=== PATIENT | female | born 1950 | race Caucasian/White ===

== ENCOUNTER 2025-06-30 14:57 | Inpatient (IN) | payer MEDICARE, OTHER, SELFPAY ==
[2025-06-30] VITALS (52 sets, daily range): BP systolic 129–206; BP diastolic 68–111; PULSE 61–82; RESP 17–18; TEMP 36.7; O2SAT 92–100; BMI 24.0; BMI 24.7
--- OUTSIDE RECORDS SUMMARY | 2025-06-30 15:07 | XMS_ITS | Encounter Summary ---
Author Organization [facility] and Its Subsidiaries and Affiliates Address [address] [address] [place] [address] Care Team Providers Care Body And Fender Mechanic Name Role Phone Nicole Blackman MD Primary Care Provider [phone] Encounter Details Date Type Department Care Team (Latest Contact Info) Description 12/12/2024 Transcribe Orders [facility] [address] [place] [address] [place] [address] [place], [place] [address] [address] [place], [place] [address] Encounter for routine cancer follow-up (Primary Dx); Personal history of breast cancer Social History Tobacco Use Types Packs/Day Years Used Date Smoking Tobacco: Never Smokeless Tobacco: Never Alcohol Use Standard Drinks/Week Comments Never 0 (1 standard drink = 0.6 oz pur e alcohol) B1300 Health Literacy Answer Date Recor ded How often do you need to hav e someone help you when you read instructions, pamphlets, or other written material from your doctor or pharmacy? Never 08/22/2024 [facility] Utilities Answer Date Recorded In the past 12 months has e electric, gas, oil, or water company threatened to shut off services in your home? No 08/22/2024 Humiliation, Afraid, Rape, and Kick questionnair e Answer Date Recorded Within the last year, have y ou been afraid of your partner or ex-partner? No 08/22/2024 Within the last year, have y ou been humiliated or emotionally abused in other ways by your partner or ex-partner? No Within the last year, have y ou been kicked, hit, slapped, or otherwise physically hurt by your partner or ex-partner? No 08/22/2024 Within the last year, have y ou been raped or forced to have any kind of sexual activity by your partner or ex-partner? No 08/22/2024 Social Connection and Isolat ion Panel [NHANES] Answer Date Recorded In a typical week, how many times do you talk on the phone with family, friends, or neighbors? More than three times a week 08/22/2024 How often do you get togethe r with friends or relatives? Twice a week 08/22/2024 How often do you attend [facility] or latter-day services? More than 4 times per year 08/22/2024 Do you belong to any clubs o r organizations such as restorationist groups, unions, fraternal or athletic groups, or school groups? Yes 08/22/2024 How often do you attend meet ings of the clubs or organizations you belong to? More than 4 times per year 08/22/2024 Are you , , di vorced, , never , or living with a partner? 08/22/2024 AUDIT-C Answer Date Recorded Q1: How often do you have a drink containing alc ohol? Monthly or less 08/22/2024 Q2: How many drinks containi ng alcohol do you have on a typical day when you are drinking? 1 or 2 08/22/2024 Q3: How often do you have si x or more drinks on one occasion? Never 08/22/2024 Overall Financial Resource Strain (CARDIA) Answe r Date Recorded How hard is it for you to pa y for the very basics like food, housing, medical care, and heating? Not hard at all 08/22/2024 PHQ-2 Answer Date Recorded PHQ-2 Score 0 09/18/2024 [facility] of Occupat ional Health - Occupational Stress Questionnaire Answer Date Recorded Do you feel stress - tense, restless, nervous, or anxious, or unable to sleep at night because your mind is troubled all the time - these days? Not at all 08/22/2024 Exercise Vital Sign Answer Date Recorde d On average, how many days pe r week do you engage in moderate to strenuous exercise (like a brisk walk)? 3 days 08/22/2024 On average, how many minutes do you engage in exercise at this level? 30 min 08/22/2024 Hunger Vital Sign Answer Date Recorded Within the past 12 months, y ou worried that your food would run out before you got the money to buy more. Never true 08/22/20 24 Within the past 12 months, t he food you bought just didn't last and you didn't have money to get more. Never true 08/22/2024 PRAPARE - Transportation Answer Date Re corded In the past 12 months, has l ack of transportation kept you from medical appointments or from getting medications? No 08/02 In the past 12 months, has l ack of transportation kept you from meetings, work, or from getting things needed for daily living? No 08/22/2024 Housing Stability Vital Sign Answer Oscar e Recorded In the last 12 months, was t here a time when you were not able to pay the mortgage or rent on time? No 08/22/2024 In the past 12 months, how m any times have you moved where you were living? 0 08/22/2024 At any time in the past 12 m [facility], were you homeless or living in a care home (including now)? No 08/22/2024 Comments Unknown Sex and Gender Information Value Date Recorded Sex Assigned at Not on file Legal Sex Female 1:06 PM TEXTILE WORKER Gender Identity Not on file Sexual Orientation Not on file documented as of this encounter Plan of Treatment Upcoming Encounters Date Type Department Care Team (Late st Contact Info) Description 10/03/2025 12:30 PM TEXTILE WORKER Infusion [facility] - OUTPATIENT INF[facility]ION [address] [place] [address] 01/02/2026 10:30 AM TEXTILE WORKER Office Visit [facility] [address] [place] [phone] Kendall Rg MD [address] [facility] [place] [address] documented as of this encounter Results * (ABNORMAL) Comprehensive metabolic panel (01/01/2025 9:39 AM [facility]) Creatinine Level 0.80 0.50 - 0.90 mg/dL 01/01/2025 11:25 AM [facility] Blood Urea Nitrogen Level 14 8 - 23 mg/dL 01/01/2025 11:25 AM [facility] Sodium Level 143 136 - 145 mmol/L 01/01/2025 11:25 AM [facility] Potassium Level 4.2 3.5 - 5.1 mmol/L 01/01/2025 11:25 AM [facility] Chloride Level 105 98 - 107 mmol/L 01/01/2025 11:25 AM [facility] CO2 Level 28 22 - 29 mmol/L 01/01/2025 11:25 AM [facility] Glucose Level 80 74 - 109 mg/dL 01/01/2025 11:25 AM [facility] Calcium Level 9.6 8.8 - 10.2 mg/dL 01/01/2025 11:25 AM [facility] Protein Total 6.9 6.4 - 8.3 g/dL 01/01/2025 11:25 AM [facility] Albumin Level 4.1 3.5 - 5.2 g/dl 01/01/2025 11:25 AM [facility] Bilirubin Total 0.4 <=1.2 mg/dL 01/01/2025 11:25 AM [facility] Alkaline Phosphatase Level 59 35 - 104 U/L 01/01/2025 11:25 AM [facility] SGOT (AST) 27 <=35 U/L 01/01/2025 11:25 AM [facility] SGPT (ALT) 21 <35 U/L 01/01/2025 11:25 AM [facility] Anion Gap 10 2 - 15 mmol/L 01/01/2025 11:25 AM [facility] EGFR 77(L) >=90 mL/min/1.7 3mSq 01/01/2025 11:25 AM [facility] Comment: In accordance with NKF-ASN Task Force recommendation, calculation based on the Chronic Kidney Disease Epidemiology Collaboration (CKD-EPI) equation without adjustment for race. eGFR adjusted for gender and age and calculated in ml/min/1.73mSquared. eGFR cannot be calculated if patient is under 18 years of age. Reference Range: >= 60 ml/min/1.73mSquared. Blood VENOUS STRUCTURE / Unknown Venipuncture / Unknown 01/01/2025 9:39 AM TEXTILE WORKER 01/01/2025 9:39 AM TEXTILE WORKER us Kendall Rg MD LAB BLOOD ORDERABLES Final R esult [facility] [address] [place] [address], [facility] [phone] documented in this encounter Visit Diagnoses Diagnosis Encounter for routine cancer follow-up- Primary Personal history of breast cancer Personal history of malignant neoplasm of breast documented in this encounter Care Teams Body And Fender Mechanic Relationship Specialty Start Date End Date Hiral, MD Nicole [address] [place] [address] PCP - General Family Medicine 07/18/24 documented as of this encounter
--- OUTSIDE RECORDS SUMMARY | 2025-06-30 15:07 | XMS_ITS | Clinical Summary ---
Author Organization [facility] Address [address] [place] [address] Care Team Providers Care Prepress Operator Name Role Phone Unavailable Primary Care Provider Unavailabl e Social History Tobacco Use Types Packs/Day Years Used Date Smoking Tobacco: Never Assessed Comments Unknown Sex and Gender Information Value Date Recorded Sex Assigned at Not on file Legal Sex Female 6:37 PM SENIOR WEB SERVICES DEVELOPER Gender Identity Not on file Sexual Orientation Not on file Plan of Treatment Not on file Procedures Procedure Name Priority Date/Time Associated Diagnosis Comments MT MAMMO DX UNI W CAD&LUCHO RIGHT Routine 12/19/2020 1:09 PM SENIOR WEB SERVICES DEVELOPER Personal history of malignant neoplasm of breast from Last 3 Months or Most Recently Relevant to Health Maintenance Results * Mammo Dx Uni W Cad&Lucho Right (12/19/2020 1:09 PM SENIOR WEB SERVICES DEVELOPER) Anatomical Region Laterality Modality Breast Right Mammography 12/19/2020 12:5 2 PM SENIOR WEB SERVICES DEVELOPER Narrative 12/19/2020 1:51 PM SENIOR WEB SERVICES DEVELOPER ALIYAH DX UNI W CAD&LUCHO Right, BREAST UNILAT LIMITED CLINICAL HISTORY: Screening. TECHNIQUE: Views: Craniocaudal, mediolateral oblique, and lateral medial mammogram of the right breast with lucho synthesis. CAD: Performed on the non-tomographic images. COMPARISON: Mammogram dated 09/27/2018 with ultrasound dated 11/04/2018. FINDINGS: Postoperative changes are noted in the right breast since the prior study with surgical clips in the central breast and axillary region. New asymmetry is noted in the lower inner right breast with inter mixed areas of calcification. Sonographic evaluation in the right breast at the 5 o'clock position zone 3 demonstrate a heterogenou s, poorly circumscribed area of low echogenicity with posterior shadowing and angulated margins. The area is taller than wide with questionable central internal echogenic foci. At the 3 o'clock position zone 3, ultrasound in straight more circumscribed areas of low attenuation which appear to have fatty foreign and are favored represent intramammary lymph nodes. IMPRESSION: BI-RADS: category 4B, concerning for malignancy. RECOMMENDATION: Ultrasound-guided biopsy. This facility uses a reminder system to ensure that all patients receive a reminder letters and/or di rect phone calls for appointments. This includes reminders for routine screening mammograms, diagnost ic mammograms, and other breast interventions when appropriate. The patient will be placed in the [employer] reminder system. Procedure Note Gonzales Rebolledo MD - 11/19/2024 ALIYAH DX UNI W CAD&LUCHO Right, BREAST UNILAT LIMITED CLINICAL HISTORY: Screening. TECHNIQUE: Views: Craniocaudal, mediolateral oblique, and lateral medial mammogram ofthe right breast with lucho synthesis. CAD: Performed on the non-tomographic images. COMPARISON: Mammogram dated 09/27/2018 with ultrasound dated 11/04/2018. FINDINGS: Postoperative changes are noted in the right breast since the prior studywith surgical clips in the central breast and axillary region. New asymmetry is noted in the lowerinner right breast with inter mixed areas of calcification. Sonographic evaluation in the right breast at the 5 o'clock position zone3 demonstrate a heterogenou s, poorly circumscribed area of low echogenicity with posterior shadowingand angulated margins. The area is taller than wide with questionable central internal echogenicfoci. At the 3 o'clock position zone 3, ultrasound in straight morecircumscribed areas of low attenuation which appear to have fatty foreign and are favored represent intramammarylymph nodes. IMPRESSION: BI-RADS: category 4B, concerning for malignancy. RECOMMENDATION: Ultrasound-guided biopsy. This facility uses a reminder system to ensure that all patients receive areminder letters and/or di rect phone calls for appointments. This includes reminders for routinescreening mammograms, diagnost ic mammograms, and other breast interventions when appropriate. Thepatient will be placed in the [employer] reminder system. us Historical Provider IMG MAMMOGRAPHY ORDERABLES F inal Result from Last 3 Months or Most Recently Relevant to Health Maintenance
--- OUTSIDE RECORDS SUMMARY | 2025-06-30 15:07 | XMS_ITS | Encounter Summary ---
Author Organization [facility] and Its Subsidiaries and Affiliates Address [address] [address] [place] [address] Care Team Providers Care Insurance Case Manager Name Role Phone Nicole Blackman MD Primary Care Provider [phone] Encounter Details Date Type Department Care Team (Late st Contact Info) Description 12/28/2024 Procedure Pass [facility] Internal Medicine - [address], [address] [place] [phone] Social History Tobacco Use Types Packs/Day Years [...] from your doctor or pharmacy? Never 08/22/2024 [facility] Utilities Answer Date Recorded In the past 12 months has [facility] [employer], [employer], oil, or water [employer] threatened to shut off services in your [...] week 08/22/2024 How often do you attend chur or rastafari services? More than 4 times per year 08/22/2024 Do you belong to any clubs o r organizations such as gnosticism groups, unions, fraternal or athletic groups, or [...] Answer Date Recorded PHQ-2 Score 0 09/18/2024 [employer] of Occupat ional Health - Occupational Stress [...] any time in the past 12 m [facility], were you homeless or living in a jail (including now)? No 08/22/2024 Comments Unknown Sex and Gender Information Value Date Recorded Sex Assigned at Not on file Legal Sex Female 1:06 PM TEST CONSULTANT Gender Identity Not on file Sexual Orientation Not on file documented as of this encounter Plan of Treatment Upcoming Encounters Date Type Department Care Team (Late st Contact Info) Description 10/03/2025 12:30 PM TEST CONSULTANT Infusion [facility] - OUTPATIENT INFUSION [address] [place] [address] 01/02/2026 10:30 AM TEST CONSULTANT Office Visit [facility] [address] [place] [address] Kendall Rg MD [address] [facility] [address] [place], [place] [address] documented as of this encounter Visit Diagnoses Not on filedocumented in this encounter Care Teams Insurance Case Manager Relationship Specialty Start Date End Date Nicole Blackman MD [address] [place] [address] PCP - General Family Medicine 9/17/24 documented as of this encounter
--- OUTSIDE RECORDS SUMMARY | 2025-06-30 15:07 | XMS_ITS | Encounter Summary ---
Author Organization [facility] and Its Subsidiaries and Affiliates Address [address] [address] [place] [address] Care Team Providers Care Form Carpenter Name Role Phone Nicole Blackman MD Primary Care Provider [phone] Encounter Details Date Type Department Care Team (Late Contact Info) Description 07/15/2024 Procedure Pass [facility] Breast Imaging [address] [place] [address] Social History Tobacco Use Types Packs/Day Years Used Date Smoking Tobacco: Never Smokeless Tobacco: Never Alcohol Use Standard Drinks/Week Comments Never 0 (1 standard drink = 0.6 oz pur e alcohol) Comments Unknown Sex and Gender Information Value Date Recorded Sex Assigned at Not on file Legal Sex Female 1:06 PM INSURANCE CHECKER Gender Identity Not on file Sexual Orientation Not on file documented as of this encounter Plan of Treatment Upcoming Encounters Date Type Department Care Team ([facility] Contact Info) Description 10/03/2025 12:30 PM INSURANCE CHECKER Infusion [facility] - OUTPATIENT [facility] [address] [place] [address] 01/02/2026 10:30 AM INSURANCE CHECKER Office Visit [facility] [address] [place] [phone] Kendall Rg MD [address] [facility] [address] [place] [address] documented as of this encounter Visit Diagnoses Not on filedocumented in this encounter Care Teams Form Carpenter Relationship Specialty Start Date End Date Nicole Blackman MD [address] [place] [address] PCP - General Family Medicine 07/18/24 documented as of this encounter
--- OUTSIDE RECORDS SUMMARY | 2025-06-30 15:07 | XMS_ITS | Clinical Summary ---
Author Organization [facility], later [facility] and Its Subsidiaries and Affiliates Address [address] [address] [place] [address] Care Team Providers Care Trim Technician Name Role Phone Nicole Blackman MD Primary Care Provider [phone] Allergies Active Allergy Reactions Criticality Noted Date Comments Penicillins Rash Low 08/14/2024 Medications * Be aware that medications may not be up to date as of this document.Always verify current medications with patient. calcium carbonate-vitam in D3 (Caltrate with Vitamin D3) 600 mg-20 mcg (800 unit) Tablet Take 90 tablets by mouth once daily. Active loperamide (IMODIUM A-D) 2 mg tablet Take 1 tablet by mouth every 8 (eight) hours. Active lactobacillus rhamnosus, GG, (CULTURELLE) 10 billion cell capsule Take 1 capsule by mouth once daily. Active calcium citrate (CALCITRATE,CIT RICAL) 200 mg (950 mg) tablet Take 1 tablet by mouth in the morning. 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 Due for Prolia infusion. Will order routine labs that are due for the infusion. Assessment & Plan (03/21/2025 11:15 AM CDT): Assessment & Plan (08/23/2024 11:03 AM CDT): Continue Prolia - Infusion order sent. Vit D and CMP checked and normal. Assessment & Plan (08/16/2024 9:50 AM CDT): Cmp, mg, vit D with Prolia planned for next month. Dexa in 13 days for monitoring. Ductal carcinoma in situ (DCIS) of right breast Assessment & Plan (08/16/2024 9:57 AM CDT): No hrt recommended. Closed left subtrochanteric femur fracture Popliteal DVT (deep venous thrombosis) Overview (01/04/2025): Left, and B subsegmental PEs with L pleural effusion s/p hip ORIF 2022 on eliquis x 6 month per pulm Stress fracture of right toe Overview (01/04/2025): R 2nd toe, osteoporosis Encounters Date Type Department Care Team Description 04/03/2025 2:30 PM CDT Infusion [facility] [address] [place] [address] Personal history of malignant neoplasm of breast (Primary Dx) 04/03/2025 History [facility] [address] [place] [address] 04/03/2025 Travel from Last 3 Months Immunizations Immunization Administration Dates Next Due Fluzone High-Dose (PF) Influ jesse Virus Vaccine 07/14/2024,10/01/2016 Influenza High-Dose (PF) Quad 0.7 mL 07/19/2024, 07/28/2023,07/22/2022 Influenza Split Quad 6-35 MO OR > or = to 3 YO 08/06/2015 Pneumococcal Conjugate PCV13 10/01/2016 Pneumococcal Polysaccharide PPSV23 10/27/2017 SARS-COV-2 Pfizer > OR = 12Y O (COVID-19) Vaccine Preservative Free 0.3 ML IM 07/14/2024,07/28/2023 SARS-COV-2 Pfizer Purple Cap (COVID-19) Vaccine Preservative Free 0.3 mL IM 07/30/2021,12/20/2020,11/29/2020 Shingrix Zoster Vaccine 03/02/2022,01/01/2022 Td (adult) PF, adsorbed 02/14/2024 Tdap 05/15/2015 Zoster 09/27/2013 Family History Medical History Relation Comments COPD Father Cancer Maternal Aunt Breast cancer Maternal Grandmother Brain aneurysm Mother Alcohol Abuse Sister Coronary artery disease Sister Relation Status Comments Father Maternal Aunt Maternal Grandmother Mother Sister Social History Tobacco Use Types Packs/Day Years Used Date Smoking Tobacco: Never Smokeless Tobacco: Never Tobacco Cessation:Counseling Given: Not Answered Alcohol Use Standard Drinks/Week Comments Never 0 (1 standard drink = 0.6 oz pur e alcohol) B1300 Health Literacy Answer Date Recor ded How often do you need to hav e someone help you when you read instructions, pamphlets, or other written material from your doctor or pharmacy? Never 08/22/2024 C Utilities Answer Date Recorded In the past 12 months has e [employer], gas, oil, or water company threatened to [...] week 08/22/2024 How often do you attend [facility] or pentecostal services? More than 4 times per year 08/22/2024 Do you belong to any clubs o r organizations such as worship groups, unions, fraternal or athletic groups, or [...] PHQ-2 Answer Date Recorded PHQ-2 Score 0 04/03/2025 [facility] - Occupational Stress [...] any time in the past 12 m [facility], were you homeless or living in a long-term (including now)? 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 Gender Identity Not on file Sexual Orientation Not on file Last Filed Vital Signs Vital Sign Reading Time Taken Comments Blood Pressure 122/70 03/21/2025 10:40 AM CDT Pulse 69 04/03/2025 2:27 PM CDT Temperature 36.6 C (97.8 F) 03/21/2025 10:40 AM CDT Respiratory Rate 18 04/03/2025 2:27 PM CDT Oxygen Saturation 94% 04/03/2025 2:27 PM CDT Inhaled Oxygen Concentration - - Weight 80.7 kg (178 lb) 04/03/2025 2:26 PM CDT Height 177.8 cm (5' 10 ) 04/03/2025 2:26 PM CDT Body Mass Index 25.54 04/03/2025 2:26 PM CDT Plan of Treatment Upcoming Encounters Date Type Department Care Team (Late st Contact Info) Description 10/03/2025 12:30 PM MACHINE ICER Infusion [facility] [address] [place] [address] 01/02/2026 10:30 AM MACHINE ICER Office Visit [facility] [address] [place] [id number] Kendall Rg MD [address] [place] [address] Health Maintenance Due Date Last Done Comments CT Colonography 1950 FIT 1950 FOBT 1950 Flexible Sigmoidoscopy 1950 Cologuard 11/13/2022 11/13/2019 DTaP/Tdap/Td Vaccines (3 - Td or Tdap) 08/15/2024 02/14/2024, 05/15/2015 COVID-19 Vaccine ( season) 2025 07/14/2024, 07/28/2023, 07/30/2021, Additional history exists INFLUENZA VACCINE 07/02/2025 07/19/2024, , 07/28/2023, Additional history exists Annual Visit for Age 65 & older with PCP 08/23/2025 08/23/2024, 12/30/2022 DEXA SCAN 08/28/2026 08/28/2024 Colonoscopy 10/11/2030 10/11/2023 Colorectal Cancer Screening 10/11/2030 Pneumococcal Vaccine: 50+ Years Completed 10/27/2017, 10/01/2016 ZOSTER VACCINE Completed 03/02/2022, 03/0 12/2021, 09/27/2013 Hepatitis C Screening Completed 08/23/2024 RSV Vaccines Completed 09/16/2024 Hepatitis B Vaccines Aged Out No long er eligible based on patient's age to complete this topic MAMMOGRAM Discontinued RSV UNDER 20 MONTHS Aged Out No longe r eligible based on patient's age to complete this topic Procedures Procedure Name Priority Date/Time Associated Diagnosis Comments XR DEXA CENTRAL Routine 08/28/2024 9:20 AM CDT Encounter for screening for osteoporosis HEPATITIS C ANTIBODY Routine 08/23/2024 11:45 AM CDT Encounter for hepatitis C screening test for low risk patient from Last 3 Months or Most Recently Relevant to Health Maintenance Results * XR Dexa Central (08/28/2024 9:20 AM CDT) Anatomical Region Laterality Modality Other 08/28/2024 10:0 5 AM CDT Impressions 08/28/2024 11:55 AM CDT Osteopenia based on BMD. Fracture risk is unknown due to history of bone building therapy. World Health Organization criteria for BMD impression classify patients as: - Normal (T-score at or above -1.0). - Osteopenia (T-score between -1.0 and -2.5). - Osteoporosis (T-score at or below -2.5). Per the Bone Health and Osteoporosis Foundation the FRAX tool is most useful in patients with low femoral neck bone mineral density (osteopenia). FRAX is calculated per request. RECOMMENDATIONS: 1. All patients should optimize their calcium and vitamin D intake. 2. Consider FDA-approved medical therapies in postmenopausal women and men aged 50 years and older, based on the following: - A hip or vertebral (clinical or morphometric) fracture. - T-score less than or equal to -2.5 at the femoral neck or spine after appropriate evaluation to exclude secondary causes. - Low bone density (T-score between -1.0 and -2.5 at the femoral neck or spine) and a 10-year probability of a hip fracture greater than or equal to 3% or a 10-year probability of a major osteoporosis-related fracture greater than or equal to 20% based on FRAX calculation. - Clinician judgment and/or patient preferences may indicate treatment for people with 10-year fracture probabilities above or below these levels. - Further guidance on treatment can be found at the National Osteoporosis Foundation's website bonesource.org. 3. Patients with diagnosis of osteoporosis or at high risk for fracture should have regular bone mineral density tests. For patients eligible for Medicare, routine testing is allowed once every 2 years. The testing frequency can be increased to one year for patients who have rapidly progressing disease, those who are receiving or discontinuing medical therapy to restore bone mass or have additional risk factors. Electronically signed by: Clayton Gardner DO 08/28/2024 11:55 AM CDT [facility] 08/28/2024 11:55 AM CDT EXAMINATION: DUAL X-RAY ABSORPTIOMETRY (DXA) FOR BONE MINERAL DENSITY. CLINICAL INDICATION: 73 years old, Female. Postmenopausal. Z13.820. History of fragility fracture. History of hip fracture. Patient has been on recent bone building therapy. TECHNIQUE: An axial (e.g., hips, spine) and/or appendicular (e.g., radius) exam was performed, as appropriate, using HoloTreventis Horizon W densitometer at [facility]. Images are obtained for bone mineral density measurement and are not obtained for diagnostic purposes. [id number] EXCLUSIONS: Left hip due to replacement. COMPARISON: 01/22/2022. FINDINGS: Scan quality: Good. LUMBAR SPINE (L1-L4): BMD (in g/cm*2): 1.014. T-score: -0.3. Z-score: 2.0. Rate of change from previous exam: -4.9%. RIGHT FEMORAL NECK: BMD (in g/cm*2): 0.647. T-score: -1.8. Z-score: 0.2. RIGHT TOTAL HIP: BMD (in g/cm*2): 0.791. T-score: -1.2. Z-score: 0.5. Rate of change from previous exam: +2.9%. FRAX 10-YEAR PROBABILITY OF FRACTURE: FRAX not reported as the patient is receiving bone building therapy. Procedure Note Clayton Gardner, - 08/28/2024 EXAMINATION: DUAL X-RAY ABSORPTIOMETRY (DXA) FOR BONE MINERAL DENSITY. CLINICAL INDICATION: 73 years old, Female. Postmenopausal. Z13.820. History of fragility fracture. History of hip fracture. Patient has beenon recent bone building therapy. TECHNIQUE: An axial (e.g., hips, spine) and/or appendicular (e.g., radius)exam was performed, as appropriate, [facility]. Images are obtained for bone mineraldensity measurement and are not obtained for diagnostic purposes.[id number] EXCLUSIONS: Left hip due to replacement. COMPARISON: 01/22/2022. FINDINGS: Scan quality: Good. LUMBAR SPINE (L1-L4): BMD (in g/cm*2): 1.014. T-score: -0.3. Z-score: 2.0. Rate of change from previous exam: -4.9%. RIGHT FEMORAL NECK: BMD (in g/cm*2): 0.647. T-score: -1.8. Z-score: 0.2. RIGHT TOTAL HIP: BMD (in g/cm*2): 0.791. T-score: -1.2. Z-score: 0.5. Rate of change from previous exam: +2.9%. FRAX 10-YEAR PROBABILITY OF FRACTURE: FRAX not reported as the patient is receiving bone building therapy. IMPRESSION: Osteopenia based on BMD. Fracture risk is unknown due to history of bone building therapy. World Health Organization criteria for BMD impression classify patientsas: - Normal (T-score at or above -1.0). - Osteopenia (T-score between -1.0 and -2.5). - Osteoporosis (T-score at or below -2.5). Per the Bone Health and Osteoporosis Foundation the FRAX tool is mostuseful in patients with low femoral neck bone mineral density(osteopenia). FRAX is calculated per request. RECOMMENDATIONS: 1. All patients should optimize their calcium and vitamin D intake. 2. Consider FDA-approved medical therapies in postmenopausal women andmen aged 50 years and older, based on the following: - A hip or vertebral (clinical or morphometric) fracture. - T-score less than or equal to -2.5 at the femoral neck or spine afterappropriate evaluation to exclude secondary causes. - Low bone density (T-score between -1.0 and -2.5 at the femoral neck orspine) and a 10-year probability of a hip fracture greater than or equalto 3% or a 10-year probability of a major osteoporosis-related fracturegreater than or equal to 20% based on FRAX calculation. - Clinician judgment and/or patient preferences may indicate treatmentfor people with 10-year fracture probabilities above or below theselevels. - Further guidance on treatment can be found at the National OsteoporosisFoundation's website bonesource.org. 3. Patients with diagnosis of osteoporosis or at high risk for fractureshould have regular bone mineral density tests. For patients eligible forMedicare, routine testing is allowed once every 2 years. The testingfrequency can be increased to one year for patients who have rapidlyprogressing disease, those who are receiving or discontinuing medicaltherapy to restore bone mass or have additional risk factors. Electronically signed by: Clayton Gardner DO 08/28/2024 11:55 AM CDT RPWorkstation: [id number] German Cuello MD IMG DEXA ORDERABLES Final Result * Hepatitis C antibody (08/23/2024 11:45 AM CDT) Hepatitis C Virus Antibody Screen Non-reacti ve NON-REACTI VE 08/23/2024 5:33 PM CDT [facility] Blood VENOUS STRUCTURE / Unknown Venipuncture / Unknown 08/23/2024 11:45 AM CDT 08/23/2024 4:54 PM CDT us Nicole Blackman MD LAB BLOOD ORDERABLES Final Resul t [facility] [address] [place] [id number] [place] [address] from Last 3 Months or Most Recently Relevant to Health Maintenance Insurance [place] [id number] GENERIC MEDICARE SUPPLEMENT Care Teams Trim Technician Relationship Specialty Start Date End Date Nicole Blackman MD [facility] [place] [address] PCP - General Family Medicine 07/18/24
--- NOTE | 2025-06-30 15:10 | CTR_ITS ---
PROCEDURE INFORMATION: Exam: CTA Head With Contrast, Arteriography Exam date and time: 06/30/2025 3:17 PM Age: 74 years old Clinical indication: Stroke-like symptoms; Left lower extremity numbness/paresthesia; Additional info: Nih 3. L sided numbness with lue and lle drift, nih 3 TECHNIQUE: Imaging protocol: Computed tomographic angiography of the head with contrast. Exam focused on the arteries. 3D rendering (Not supervised by radiologist): MIP and/or 3D reconstructed images were created by the technologist. Radiation optimization: All CT scans at this facility use at least one of these dose optimization techniques: automated exposure control; mA and/or kV adjustment per patient size (includes targeted exams where dose is matched to clinical indication); or iterative reconstruction. Contrast material: OMNI 350; Contrast volume: 100 ml; Contrast route: INTRAVENOUS (IV); COMPARISON: CT head thrombolytic [id number] 06/30/2025 3:11 PM RADIATION DOSE METRICS: Total DLP (mGy-cm): 441.47 FINDINGS: ANTERIOR CIRCULATION: Right internal carotid artery: Intracranial segment is patent with no significant stenosis. No aneurysm. Right middle cerebral artery: No occlusion or significant stenosis. No aneurysm. Right anterior cerebral artery: No occlusion or significant stenosis. No aneurysm. Left internal carotid artery: Intracranial segment is patent with no significant stenosis. No aneurysm. Left middle cerebral artery: No occlusion or significant stenosis. No aneurysm. Left anterior cerebral artery: No occlusion or significant stenosis. No aneurysm. POSTERIOR CIRCULATION: Right vertebral artery: No occlusion or significant stenosis. No aneurysm. Left vertebral artery: No occlusion or significant stenosis. No aneurysm. Basilar artery: No occlusion or significant stenosis. No aneurysm. Right posterior cerebral artery: No occlusion or significant stenosis. No aneurysm. Left posterior cerebral artery: No occlusion or significant stenosis. No aneurysm. Brain: Please see the CT brain report. Cerebral ventricles: No ventriculomegaly. Bones/joints: Unremarkable. No acute fracture. Soft tissues: Unremarkable. PROCEDURE INFORMATION: Exam: CTA Neck With Contrast Exam date and time: 06/30/2025 3:17 PM Age: 74 years old Clinical indication: Stroke-like symptoms; Left lower extremity numbness/paresthesia; Additional info: Nih 3. L sided numbness with lue and lle drift, nih 3 TECHNIQUE: Imaging protocol: Computed tomographic angiography of the neck with contrast. Exam focused on the cervical segments of the vasculature. 3D rendering (Not supervised by radiologist): MIP and/or 3D reconstructed images were created by the technologist. Radiation optimization: All CT scans at this facility use at least one of these dose optimization techniques: automated exposure control; mA and/or kV adjustment per patient size (includes targeted exams where dose is matched to clinical indication); or iterative reconstruction. Contrast material: OMNI 350; Contrast volume: 100 ml; Contrast route: INTRAVENOUS (IV); COMPARISON: CT head thrombolytic [id number] 06/30/2025 3:11 PM RADIATION DOSE METRICS: Total DLP (mGy-cm): 441.47 FINDINGS: Right common carotid artery: No stenosis. No dissection or occlusion. Right internal carotid artery: No stenosis of the extracranial segment. No dissection or occlusion. Right external carotid artery: No occlusion or stenosis of the origin. Left common carotid artery: No stenosis. No dissection or occlusion. Left internal carotid artery: No stenosis of the extracranial segment. No dissection or occlusion. Left external carotid artery: No occlusion or stenosis of the origin. Right vertebral artery: No stenosis. No dissection or occlusion. Left vertebral artery: No stenosis. No dissection or occlusion. Soft tissues: Normal. No significant soft tissue swelling. Bones/joints: No acute fracture. Lungs: Bilateral apical pleural disease. No pneumothorax. CT/CT angio headneck* [id number] IMPRESSION: No large vessel stenosis or occlusion. IMPRESSION: 1. No stenosis or occlusion. 2. THIS REPORT CONTAINS FINDINGS THAT MAY BE CRITICAL TO PATIENT CARE. The findings were verbally communicated by me to ARMEN JONES at 3:38 PM DANCE THERAPIST on 06/30/2025. The findings were acknowledged and understood for both CTA studies.. REFERENCES: NASCET CRITERIA. The degree of stenosis in the cervical segment of the internal carotid artery is based on NASCET criteria. Normal is no stenosis. Mild is less than 50% stenosis. Moderate is 50-69% stenosis. Severe is 70% to 99% stenosis. Total occlusion is no detectable patent lumen.
--- NOTE | 2025-06-30 15:10 | CTR_ITS ---
PROCEDURE INFORMATION: Exam: CT Head Without Contrast Exam date and time: 06/30/2025 3:11 PM Age: 74 years old Clinical indication: Stroke-like symptoms; Lt lower extremity weakness; Additional info: Symptoms of acute stroke TECHNIQUE: Imaging protocol: Computed tomography of the head without contrast. Radiation optimization: All CT scans at this facility use at least one of these dose optimization techniques: automated exposure control; mA and/or kV adjustment per patient size (includes targeted exams where dose is matched to clinical indication); or iterative reconstruction. Other technique: STROKE PROTOCOL was implemented. COMPARISON: No relevant prior studies available. RADIATION DOSE METRICS: Total DLP (mGy-cm): 1029.18 FINDINGS: Brain: Moderate atrophy as well as small vessel ischemic changes. No intracranial hemorrhage or midline shift. Cerebral ventricles: No ventriculomegaly. Paranasal sinuses: Inframammary thickening posteriorly within the right maxillary sinus. Mastoid air cells: Visualized mastoid air cells are well aerated. Bones: Unremarkable. No acute fracture. Soft tissues: Unremarkable. CT/CT head thrombolytic [id number] IMPRESSION: No acute intracranial abnormality. ASSESSMENT: ASPECTS ([place] Stroke Program Early CT Score) is 10.
[2025-06-30] MEDS: iohexol 350 mg/mL 500 mL Btl (per mL) IV (15:26)
[2025-06-30 15:31] LABS: Hematocrit 41.0 % (37-53); Hemoglobin 13.40 g/dL (11.27-16.99); Mean Corpuscular HGB Conc 32.7 g/dL (30-55); Mean Corpuscular Hemoglobin 28.8 pg (27-33); Mean Corpuscular Volume 88.0 fl (82-101); Nucleated Red Blood Cells % 0 %; Platelet Count 353 10^3/cmm (157-399); Red Blood Count 4.66 10^6/uL (3.85-5.65); White Blood Count 6.73 10^3/uL (3.29-11.43)
--- NOTE | 2025-06-30 15:36 | ECG_ITS ---
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 Measurements Intervals [place] Rate: 80 P: 58 SD: 141 QRS: -30 QRSD: 110 T: 54 QT: 399 QTc: 463 Interpretive Statements SINUS RHYTHM WITH OCCASIONAL SUPRAVENTRICULAR PREMATURE COMPLEXES INCOMPLETE RIGHT BUNDLE BRANCH BLOCK [90+ ms QRS DURATION, TERMINAL R IN V1/V2, 40+ ms S IN I/aVL/V4/V5/V6] SEPTAL MYOCARDIAL INFARCTION , OF INDETERMINATE AGE [40+ ms Q WAVE IN V1/V2] No previous ECG available for comparison Electronically Signed On 07-01-2025 22:17:03 CDT by Hans Bae M.D. [email or web address]
[2025-06-30 15:43] LABS: INR 0.90 (0.8-1.2); Partial Thromboplastin Time 25.0 SECONDS (23.9-36.7); Prothrombin Time 12.80 SECONDS (12.1-14.9)
--- NOTE | 2025-06-30 15:43 | ED_ITS ---
HPI - Neuro Symptoms/Deficit 2 General: Chief Complaint: Neuro Symptoms/Deficit Stated Complaint: stroke like symptoms Time Seen by Provider: 06/30/25 15:06 Source: patient Mode of arrival: ambulatory Limitations: no limitations History of Present Illness: Patient sent over from urgent care for concern for strokelike symptoms. Patient has left facial and left arm numbness that also extends up to the left leg. Patient does not know of any weakness. Last normal at a few minutes before 2 PM. She takes no blood thinners. She has been on them in the past when she had a blood clot after a hip surgery. She is currently visiting her brother from out of town. She lives in [facility]. Related Data Home Medications ?Medication ?Instructions ?Recorded ?Confirmed L.acidophil-L.casei-B.bifid-B.longum-FOS 1 cap PO RENATO Y 06/30/25 06/30/25 2 billion cell-50 mg capsule (Probiotic Blend) calcium carbonate (Calcium 600) 600 mg PO DAILY 06/30/25 cholecalciferol (vitamin D3) 125 125 mcg PO DAILY 06/0306/30/25 mcg (5,000 unit) tablet (Vitamin D3) denosumab 60 mg/mL subcutaneous 60 mg SUBCUT Q6M 06/3006/30/25 syringe (Prolia) Allergies Allergy/AdvReac Type Severity Reaction Status Date / Time Penicillins Allergy Unknown Verified 06/30/25 15:12 Review of Systems 2 General: Reports: 10 or more systems reviewed and unremarkable except in HPI and below NIH stroke score 2 NIHSS: Level Of Consciousness - 1a: 0 Level Of Consciousness Questions - 1b: Both Correct Level Of Consciousness Commands - 1c: Both Correct Best Gaze - 2: Normal Visual Izquierdo - 3: No Visual Loss Facial Palsy - 4: N ormal Motor Arm Right - 5: No Drift Motor Arm Left - 5: Drift Motor Leg Right - 6: No Drift Motor Leg Left - 6: Drift Limb Ataxia - 7: Absent S ensory - 8: Mild To Moderate Loss Best Language - 9: No Aphasia Dysarthia - 10: Normal Extinction And Inattention - 11: 0 Score: Total Score: 3 Physical Exam 2 Const: COMMON NORMALS: no acute distress, average body habitus, patient oriented x3, healthy appearing, alert and well nourished GENERAL APPEARANCE: well kempt and well developed HENMT: COMMON NORMALS: normocephalic, atraumatic, external ears normal and moist oral mucous membranes HEAD & SCALP: normocephalic and atraumatic E XTERNAL EAR: Yes external ears normal Eye: COMMON NORMALS: Equal, round and reactive pupils present, EOMs intact bilaterally and conjunctivae normal CONJUNCTIVA: Yes conjunctivae normal P UPIL: Yes Equal, round and reactive pupils present Neck/C-Spine: COMMON NORMALS: full ROM, no lymphadenopathy and supple Chest: CHEST: Yes Symmetrical chest wall rise and No Surgical scars present (Chest) Resp: COMMON NORMALS: normal respiratory effort, No retractions, No use of accessory muscles and clear to auscultation bilaterally AUSCULTATION: clear to auscultation bilaterally Cardio: COMMON NORMALS: regular rate, regular rhythm, S1 normal heart sound present, S2 normal heart sound present, No gallops present (Cardio), No clicks present (Cardio), No murmurs present (Cardio) and No rub (Cardio) RATE: r egular rate RHYTHM: regular rhythm HEART SOUNDS: S1 normal heart sound present, S2 normal heart sound present and no murmurs PERIPHERAL PULSES: o ther (Radial pulses 2+ and symmetric) GI: COMMON NORMALS: Soft to palpation, non-tender and no masses INSPECTION: No abdominal distension PALPATION: Yes Soft to palpation, No Guarding due to palpation present (GI) and No Rebound tenderness present : BLADDER/KIDNEY EXAM: Yes no CVA tenderness Back/Pelvis: COMMON NORMALS: no CVA tenderness Extremity: COMMON NORMALS: normal to inspection, full ROM, capillary refill normal and no clubbing, cyanosis or edema Neuro: JUSTYNA COMA SCALE: document GCS findings Justyna coma scale eye opening: Spontaneous Justyna coma scale verbal response: Orientated [place] coma scale motor response: Obey commands Justyna coma scale total score: 15 COMMON NORMALS: patient oriented x3; negative for no sensory deficits noted SENSORIUM/ORIENTATION: Yes alert O THER: Mild tongue deviation to the left and protruding. Left arm and left leg drift that is mild but present and numbness to the left side. Psych: APPEARANCE: Yes well kempt Skin: COMMON NORMALS: no rashes or lesions noted, no wounds, turgor normal and no jaundice GENERAL SKIN EXAM: no rashes or lesions noted and turgor normal Course 2 Reevaluation(s): Reevaluation #1: Discussed the case with [facility] telestroke unit. [id number] as well as over the phone via the robotic camera in the room. Risk and benefits were discussed both by myself and by Dr. Higginbotham about tPA to the patient. Patient is in agreement and consent for the tPA. We will work on controlling her blood pressure to make it safe. Time: 15:44 Vital Signs: Vital signs: Vital Signs Temperature 98.0 F 06/30/25 15:08 Pulse Rate 68 06/30/25 18:00 Respiratory Rate 17 06/30/25 16:31 Blood Pressure 161/68 06/30/25 18:00 Pulse Oximetry 98 06/30/25 18:00 Oxygen Delivery Me thod Room Air 06/30/25 17:12 MDM - Neuro Symptoms/Deficit Medical Decision Making concern is CVA. tpa given. pt is improving some at time of transfer to ICU. Personally reviewed CT scan and saw no acute abnormality. See ED course for discussion with neurology. Patient was discussed with Dr. Garvey and will be admitted to the ICU. DDx includes hemiplegic migraine without headache, TIA, paresthesias Medical Records I reviewed the patient's medical records. Lab Data I reviewed the patient's lab results. 06/30/25 15:26 06/30/25 15:[address] 06/30/25 15:10 IMPRESSION: No acute intracranial abnormality. ASSESSMENT: ASPECTS ([place] Stroke Program Early CT Score) is 10. ADDENDUM: 06/30/25 1540 THIS REPORT CONTAINS FINDINGS THAT MAY BE CRITICAL TO PATIENT CARE. The findings were verbally communicated by me to ARMEN JONES at 3:37 PM AUTOMATIC FURNACE OPERATOR on 06/30/2025. The findings were acknowledged and understood. Head/Neck CTA 06/30/25 15:10 IMPRESSION: No large vessel stenosis or occlusion. IMPRESSION: 1. No stenosis or occlusion. 2. THIS REPORT CONTAINS FINDINGS THAT MAY BE CRITICAL TO PATIENT CARE. The findings were verbally communicated by me to ARMEN JONES at 3:38 PM AUTOMATIC FURNACE OPERATOR on 06/30/2025. The findings were acknowledged and understood for both CTA studies.. REFERENCES: NASCET CRITERIA. The degree of stenosis in the cervical segment of the internal carotid artery is based on NASCET criteria. Normal is no stenosis. Mild is less than 50% stenosis. Moderate is 50-69% stenosis. Severe is 70% to 99% stenosis. Total occlusion is no detectable patent lumen. Laboratory Results WBC 6.73 10^3/uL (3.29-11.43) 06/30/25 15: RBC 4.66 10^6/uL (3.85-5.65) 06/30/25 15:26 Hgb 13.40 g/dL (11.27-16.99) 06/30/25 15:26 Hct 41.0 % (37-53) 06/30/25 15: MCV 88.0 fl (82-101) 06/30/25 15: MCH 28.8 pg (27-33) 06/30/25 15: MCHC 32.7 g/dL (30-55) 06/30/25 15: RDW 13.7 % (12.1-15.1) 06/30/25 15: Plt Count 353 10^3/cmm (157-399) 06/30/25 15: MPV 10.2 fL (7.4-10.4) 06/30/25 15: Neut % (Auto) 62.0 % 06/30/25 15:26 Lymph % (Auto) 24.1 % 06/30/25 15:26 [place] % (Auto) 10.1 % 06/30/25 15:26 Eos % (Auto) 2.8 % 06/30/25 15:26 Baso % (Auto) 0.7 % 06/30/25 15:26 Neut # (Auto) 4.17 10^3/uL (1.8-7.7) 06/30/25 15:26 Lymph # (Auto) 1.6 10^3/uL (0.8-4.8) 06/30/25 15:26 [place] # (Auto) 0.7 10^3/uL (0.2-0.9) 06/30/25 15:26 Eos # (Auto) 0.2 10^3/uL (0.0-0.8) 06/30/25 15:26 Baso # (Auto) 0.1 10^3/uL (0.0-0.1) 06/30/25 15:26 Nucleated RBC % (auto) 0 % 06/30/25 15:26 Nucleated RBCs # 0.0 /100WBC 06/30/25 15:26 PT 12.80 SECONDS (12.1-14.9) 06/30/25 15:26 INR 0.90 (0.8-1.2) 06/30/25 15:26 APTT 25.0 SECONDS (23.9-36.7) 06/30/25 15:26 Sodium 143 mmol/L (136-145) 06/30/25 15:26 Potassium 4.1 mmol/L (3.5-5.1) 06/30/25 15:26 Chloride 104 mmol/L (98-107) 06/30/25 15:26 Carbon Dioxide 26 mmol/L (22-29) 06/30/25 15:26 Anion Gap 16.1 (5-19) 06/30/25 15:26 BUN 18 mg/dL (8-23) 06/30/25 15:26 Creatinine 0.9 mg/dL (0.7-1.2) 06/30/25 15:26 GFR Calculation Not Reportable 06/30/25 15:26 Glucose 93 mg/dL (65-115) 06/30/25 15:26 POC Glucose 87 mg/dL (70-110) 06/30/25 15:07 Calculated Osmolality 296 mOsm/kg (285-295) H 06/30/25 15:26 Calcium 9.8 mg/dL (8.5-10.5) 06/30/25 15:26 Total Bilirubin 0.5 mg/dL (0.15-1.2) 06/30/25 15:26 AST 21 U/L (0-40) 06/30/25 15:26 ALT 16 U/L (0-41) 06/30/25 15:26 Alkaline Phosphatase 63 U/L (40-130) 06/30/25 15:26 Total Protein 6.9 g/dL (6.6-8.7) 06/30/25 15:26 Albumin 4.2 g/dL (3.5-5.2) 06/30/25 15:26 Globulin 2.7 g/dL (1.3-4.6) 06/30/25 15:26 All radiology interpretation(s) finalized by discharge Critical Care Time 2 Critical Care Time: Critical Care Time: Yes Total Critical Care Time: 49 Attestation: This case had a high probability of a clinically significant, sudden, or life threatening deterioration of this patient's condition which required my full and direct attention, intervention and personal management. Discharge Plan Discharge Patient Disposition: Admitted As Inpatient Admit Provider: Divina Garvey Clinical Impression: Cerebrovascular accident Condition: Stable Coding Level of Care Code ED Criminal Legal Assistant for Phoebe Sands
[2025-06-30 15:46] LABS: Chloride 104 mmol/L (98-107); Potassium 4.1 mmol/L (3.5-5.1); Sodium 143 mmol/L (136-145)
[2025-06-30] MEDS: labetalol 5 mg/mL SDV 20mL 10 MG IVP ×2 (15:50→20:38)
--- NOTE | 2025-06-30 15:54 | PC.NURSE ---
NEW WEIGHT OBTAINED ON PT. NEW WEIGHT INDICATED TO GIVE 18MG OF TNKASE INSTEAD OF THE ORDERED 19MG. DR. JONES NOTIFIED. VERBAL ORDERS TO GIVE 18MG INSTEAD OF 19MG.
[2025-06-30 15:59] LABS: Alanine Aminotransferase 16 U/L (0-41); Albumin Level 4.2 g/dL (3.5-5.2); Alkaline Phosphatase 63 U/L (40-130); Anion Gap 16.1 (5-19); Aspartate Amino Transferase 21 U/L (0-40); Blood Urea Nitrogen 18 mg/dL (8-23); Calcium 9.8 mg/dL (8.5-10.5); Carbon Dioxide 26 mmol/L (22-29); Creatinine Clr Calc Pharmacy 73.8784; Globulin 2.7 g/dL (1.3-4.6); Glucose 93 mg/dL (65-115); Osmolality Calculated 296 mOsm/kg (285-295); Total Protein 6.9 g/dL (6.6-8.7)
[2025-06-30] MEDS: tenecteplase 50mg Kit (STROKE) 18 MG IVP (16:00)
--- NOTE | 2025-06-30 16:05 | USCV_ITS ---
Mary Gutierrez Age: 74 Gender: F : 1950 Exam Date: 06/30/2025 17:42 Ordering Phys: Divina Garvey MD Technologist: Delfino Orozco Exam Location: [facility] Indication: acute stroke BP: 192 / 78 HR: 68 Rhythm: Sinus Technical Quality: Adequate MEASUREMENTS (Male / Female) Normal Values 2D ECHO LV Diastolic Diameter PLAX 5.0 cm 4.2 - 5.9 / 3.9 - 5.3 cm IVS Diastolic Thickness 1.2 cm 0.6 - 1.0 / 0.6 - 0.9 cm IVS Systolic Thickness 1.5 cm LVPW Diastolic Thickness 0.8 cm 0.6 - 1.0 / 0.6 - 0.9 cm LVPW Systolic Thickness 1.5 cm LVOT Diameter 2.0 cm LV Ejection Fraction 2D Teich 78.6 % LV Ejection Fraction MOD 4C 65.9 % LV Ejection Fraction MOD 2C 74.3 % LV Ejection Fraction 2C AL 73.6 % LA Diameter 3.0 cm RA Systolic Volume 4C AL 28.2 ml RA Systolic Volume 4C MOD 26.4 ml LA Sys Volume AL 38.8 cm cubed LA Sys Volume Index AL 20.6 cm cubed/m squared Aorta at Sinotubular Diameter 2.3 cm IVC Diameter 1.1 cm M-MODE LA Ao Ratio MM 1.2 AV Cusp Separation MM 1.5 cm DOPPLER AV Peak Velocity 117.0 cm/s LVOT Peak Velocity 120.0 cm/s AV Area Cont Eq vti 2.7 cm squared AV Area Cont Eq pk 3.3 cm squared MV Peak Velocity 100.0 cm/s MV Area PHT 3.8 cm squared Mitral E to A Ratio 0.7 TV Peak Velocity 217.5 cm/s TR Peak Velocity 279.0 cm/s TR Peak Gradient 31.1 mmHg TR Mean Velocity 212.0 cm/s TR Mean Gradient 19.2 mmHg TR Velocity Time Integral 62.2 cm PV Peak Velocity 101.0 cm/s RV Ejection Time 0.2 s FINDINGS Left Ventricle Normal left ventricular cavity size. Mild septal hypertrophy. Hyperdynamic left ventricular systolic function. Left ventricular ejection fraction is estimated at 74%. Normal diastolic function. Right Ventricle Normal right ventricular size and systolic function. Normal right ventricular systolic pressure. Right Atrium Normal right atrial size. Left Atrium Normal left atrial size. Mitral Valve Mild mitral valve regurgitation. Aortic Valve No aortic valve stenosis. Trace aortic valve regurgitation. Tricuspid Valve Trace tricuspid valve regurgitation. Pulmonic Valve No pulmonary valve stenosis. No pulmonary valve regurgitation. Pericardium No pericardial effusion. Aorta Normal size aortic root and proximal ascending aorta. IVC Normal inferior vena cava. CONCLUSIONS 1. Hyperdynamic left ventricular function, EF 74%. 2. No significant valvular abnormalities. Hans Bae MD, FACC (Electronically Signed) Final Date: 30 June 2025 19:47 S
[2025-06-30 16:27] LABS: Glucose Urine UA Negative (Normal); Nitrate Urine Positive (Negative); Specific Gravity, Urine 1.028 (1.005-1.030)
[2025-06-30 16:32] LABS: Add Urine Microscopic? YES
[2025-06-30 16:35] LABS: PCP Screen Urine Negative (Negative)
--- NOTE | 2025-06-30 17:52 | PM.HP ---
Providers/Chief Complaint Admitting Physician: Divina Garvey MD Chief Complaint: stroke like symptoms History of Present Illness Mary Gutierrez is a 74 year old female with nonsignificant past medical history presented to the hospital today for presence of left-sided numbness and weakness when she first. To the ER. ER doctor's evaluation noted NIH 3 based on left arm and left arm slight drift. She also had left tongue deviation. Telestroke service was contacted at [place]. After shared decision-making with ER physician and telestroke service it was decided to administer TNKase. Patient denies slurred speech or dysphagia. 30 minutes post TNKase her numbness started to improve. At the time of hospitalist evaluation in ICU patient symptoms have resolved. She is able to swallow per dysphagia nursing screen as well. Medications/Allergies Home Medications ?Medication ?Instructions ?Recorded ?Confirmed ?Last Taken ?Type L.acidophil-L.casei-B.bifid-B.longum-FOS 1 cap PO DAILY 06/30/25 06/30/25 06/30/25 History 2 billion cell-50 mg capsule (Probiotic Blend) calcium carbonate (Calcium 600) 600 mg PO DAILY 06/30/25 06/30/25 06/30/25 History cholecalciferol (vitamin D3) 125 125 mcg PO DAILY 06/30/25 06/30/25 06/30/25 History mcg (5,000 unit) tablet (Vitamin D3) denosumab 60 mg/mL subcutaneous 60 mg SUBCUT Q6M 06/30/25 06/30/25 03/14/25 History syringe (Prolia) Allergies Allergy/AdvReac Type Severity Reaction Status Date / Time Penicillins Allergy Unknown Verified 06/30/25 15:12 Vitals/I&O/Wt Last Vital Signs Temp 98.0 F 06/30/25 15:08 Pulse 75 06/30/25 17:25 Resp 17 06/30/25 16:31 BP 192/78 06/30/25 17:25 Pulse Ox 100 06/30/25 17:25 O2 Del Method Room Air 06/30/25 17:12 Weight last 48 hrs Weight 71.838 kg Weight 76.204 kg Physical Exam Narrative: General: Alert oriented x3, patient seen laying in bed appearing comfortable at this time HEENT: Normocephalic, atraumatic, EOMI, breathing room air Cardio: Regular rate rhythm, normal S1-S2, Respiratory: Good bilateral air entry, no wheezes no rhonchi appreciated GI: Abdomen soft, nontender, bowel sounds + Extremities: No edema bilateral extremities Neuro: Nonfocal exam, cranial nerves intact, strength and sensation equal bilaterally upper and lower extremities. Clear speech. Still has numbness left side of face and left arm. The slightest 1 out of 10 facial droop on left side present. It is very subtle but noticeable Data 06/30/25 15:26 06/30/25 15:26 A&P Assessment and plan 1. Cerebrovascular accident: 2. Thrombolytic therapy administered within 2 hours of onset of symptoms: 3. Hypertension: Plan: #Cerebrovascular accident #Status post TNKase #Hypertension ? Repeat head CT 4 hours post TNKase ? Cardene drip was ordered in the ER but never had to be started. She did get labetalol 10 IV x 1. ? Placed on aspirin atorvastatin 24 hours post TNKase ? Neurochecks every 2 hours ? Refrain from blood draws for 24 hours ? Check echocardiogram ? Nursing dysphagia screen ? Speech therapy ? PT OT ? Continue to monitor on telemetry ? Admit to ICU for closer monitoring - appreciate neuro recs - Vital signs every 15 minutes for 2 hours and every 30 minutes for 6 hours and every 6 minutes under 24 hours per protocol ? Maintain blood pressure at or below 180/105 ? Refrain from DVT prophylaxis for at least 24 hours ?Check lipid panel, hemoglobin A1c, TSH Full code DVT prophylaxis: SCDs PDMP PDMP Reviewed: Not Reviewed Attestations Medical Necessity Statement*: Post-tnkase care observation admit Diagnoses Cerebrovascular accident I63.9 Thrombolytic therapy administered within 2 hours of onset of symptoms Hypertension I10
--- NOTE | 2025-06-30 18:02 | PC.NURSE ---
No issues with bedside swallow, Dr. Garvey approved starting diet order
[2025-06-30] MEDS: nicardipine 20 MG/200 ML PREMIX 50 MG IV (21:52)
[2025-07-01] VITALS (78 sets, daily range): BP systolic 131–174; BP diastolic 71–105; PULSE 52–76; RESP 17–21; TEMP 36.5–36.6; O2SAT 93–100; BMI 24.5
--- NOTE | 2025-07-01 12:12 | P.PN_ITS ---
Subjective 2 Subjective: Seen this morning. Still complains of left-sided numbness however facial droop is improving. No left sided drift. No dysphagia. Doing well. Vitals/I&O/Wt Last Vital Signs Temp 97.8 F 07/01/25 05:00 Pulse 69 07/01/25 08:41 Resp 17 06/30/25 16:31 BP 148/97 07/01/25 08:41 Pulse Ox 98 07/01/25 08:30 O2 Del Method Room Air 06/30/25 23:16 06/30/25 07/01/25 07/01/25 22:59 06:59 14:59 Intake Total 353.000 / 367.485 9617 / 1353.000 240 / 240 Output Total 700 / 700 Balance -347.000 / -929.342 7638 / 653.000 240 / 240 Weight last 48 hrs Weight 77.564 kg Weight 78.103 kg Weight 71.838 kg Weight 76.204 kg Physical Exam 2 Narrative: General: Alert oriented x3, patient seen laying in bed appearing comfortable at this time HEENT: Normocephalic, atraumatic, EOMI, breathing room air Cardio: Regular rate rhythm, normal S1-S2, Respiratory: Good bilateral air entry, no wheezes no rhonchi appreciated GI: Abdomen soft, nontender, bowel sounds + Extremities: No edema bilateral extremities Neuro: Nonfocal exam, cranial nerves intact, strength and sensation equal bilaterally upper and lower extremities. Clear speech. Still has numbness left side of face and left arm. Left-sided facial droop improving. Gezb-pe-zhze negative lzwjis-os-sluz normal. No dysdiadochokinesia Data 06/30/25 15:26 06/30/25 15:26 Micro: Microbiology 06/30/25 16:21 Urine Culture - Preliminary Urine,Clean Catch Gram Negative Rods A&P Assessment and plan 1. Cerebrovascular accident: 2. Thrombolytic therapy administered within 2 hours of onset of symptoms: 3. Hypertension: Plan: #Cerebrovascular accident #Status post TNKase #Hypertension ? Repeat head CT 4 hours post TNKase ? Cardene drip was ordered in the ER but never had to be started. She did get labetalol 10 IV x 1. ? Placed on aspirin atorvastatin 24 hours post TNKase ? Neurochecks every 2 hours ? Refrain from blood draws for 24 hours ? Check echocardiogram ? Nursing dysphagia screen ? Speech therapy ? PT OT ? Continue to monitor on telemetry ? Admit to ICU for closer monitoring - appreciate neuro recs - Vital signs every 15 minutes for 2 hours and every 30 minutes for 6 hours and every 6 minutes under 24 hours per protocol ? Maintain blood pressure at or below 180/105 ? Refrain from DVT prophylaxis for at least 24 hours ?Check lipid panel, hemoglobin A1c, TSH Full code DVT prophylaxis: SCDs 07/01/2025 Per protocol: Start aspirin atorvastatin after head CT complete. Labs to be done around 3:30 PM Maintain blood pressure below 180/105. Will get permissive hypertension. Nursing dysphagia screen negative. Patient on regular diet Continue on PT/OT Transfer to floor today of the CT head negative. PDMP PDMP Reviewed: Not Reviewed Attestations 2 Medical Necessity Statement*: Post-tnkase care observation admit Diagnoses Cerebrovascular accident I63.9 Thrombolytic therapy administered within 2 hours of onset of symptoms Hypertension I10
--- NOTE | 2025-07-01 15:00 | CTR_ITS ---
PROCEDURE INFORMATION: Exam: CT Head Without Contrast Exam date and time: 07/01/2025 2:52 PM Age: 74 years old Clinical indication: Condition or disease; Other: Post tn mukund; Additional info: Acute stroke TECHNIQUE: Imaging protocol: Computed tomography of the head without contrast. Radiation optimization: All CT scans at this facility use at least one of these dose optimization techniques: automated exposure control; mA and/or kV adjustment per patient size (includes targeted exams where dose is matched to clinical indication); or iterative reconstruction. COMPARISON: CT angio headneck* [id number] 06/30/2025 3:17 PM RADIATION DOSE METRICS: Total DLP (mGy-cm): 1033.98 FINDINGS: Brain: No acute intra-axial hemorrhage. No masses. Normal dickerson-white matter differentiation. No midline shift or mass effect. Severe patchy hypodensity in hemispheric white matter bilaterally 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. Cerebral ventricles: No ventriculomegaly. Paranasal sinuses: Visualized sinuses are unremarkable. No fluid levels. Mastoid air cells: Visualized mastoid air cells are well aerated. Bones: Unremarkable. No acute fracture. Soft tissues: Unremarkable. CT/CT head wo con* [id number] IMPRESSION: 1. No acute intracranial abnormality. 2. Consider MRI brain for further evaluation.
[2025-07-01 16:13] LABS: Hematocrit 43.3 % (36-47); Hemoglobin 13.30 g/dL (11.27-16.99); Mean Corpuscular HGB Conc 30.7 g/dL (30-55); Mean Corpuscular Hemoglobin 28.7 pg (27-33); Mean Corpuscular Volume 93.3 fl (85-98); Nucleated Red Blood Cells % 0 %; Platelet Count 317 10^3/cmm (157-399); Red Blood Count 4.64 10^6/uL (3.85-5.65); White Blood Count 5.05 10^3/uL (3.29-11.43)
[2025-07-01] MEDS: aztreonam 1,000 MG in sodium chloride 0.9% (plus) 50 ML 100 MG IV (16:18)
[2025-07-01 16:41] LABS: Alanine Aminotransferase 17 U/L (0-33); Albumin Level 3.8 g/dL (3.5-5.2); Alkaline Phosphatase 63 U/L (35-105); Aspartate Amino Transferase 22 U/L (0-32); Blood Urea Nitrogen 12 mg/dL (8-23); Calcium 8.9 mg/dL (8.5-10.5); Carbon Dioxide 22 mmol/L (22-29); Chloride 107 mmol/L (98-107); Cholesterol 171 mg/dL (0-200); Creatinine Clr Calc Pharmacy 70.2473; Globulin 3.0 g/dL (1.3-4.6); Glucose 88 mg/dL (65-115); HDL Cholesterol 36 mg/dL (60-100); Osmolality Calculated 289 mOsm/kg (285-295); Sodium 140 mmol/L (136-145); Thyroid Stimulating Hormone 5.13 uIU/mL (0.27-4.20); Total Protein 6.8 g/dL (6.6-8.7); Triglycerides 103 mg/dL (0-150); VLDL Cholestrol Calculation 21 mg/dL (0-30)
[2025-07-01 16:42] LABS: Anion Gap 14.9 (5-19); Potassium 3.9 mmol/L (3.5-5.1)
[2025-07-01 18:12] LABS: Estmated Average Glucose 103; Hemoglobin A1C 5.2 % (4.0-6.0)
--- NOTE | 2025-07-01 18:14 | PC.NURSE ---
received order to transfer from icu to [facility].transferred to room 106 in [facility] at this time.oriented ti room environment.instructed to notify staff for any dizziness,worsening of numbness on left side,headache or for any concerns at all.pt verb understanding of instructions.
[2025-07-02] VITALS (10 sets, daily range): BP systolic 166–200; BP diastolic 76–100; PULSE 59–80; RESP 16–21; TEMP 36.4–36.5; O2SAT 92–97
[2025-07-02] MEDS: aztreonam 1,000 MG in sodium chloride 0.9% (plus) 50 ML 100 MG IV (04:17)
[2025-07-02 05:01] LABS: Hematocrit 42.9 % (36-47); Hemoglobin 13.70 g/dL (11.27-16.99); Mean Corpuscular HGB Conc 31.9 g/dL (30-55); Mean Corpuscular Hemoglobin 28.9 pg (27-33); Mean Corpuscular Volume 90.5 fl (85-98); Nucleated Red Blood Cells % 0 %; Platelet Count 269 10^3/cmm (157-399); Red Blood Count 4.74 10^6/uL (3.85-5.65); White Blood Count 7.01 10^3/uL (3.29-11.43)
[2025-07-02 05:57] LABS: Blood Urea Nitrogen 17 mg/dL (8-23); Calcium 9.0 mg/dL (8.5-10.5); Carbon Dioxide 22 mmol/L (22-29); Chloride 108 mmol/L (98-107); Creatinine Clr Calc Pharmacy 70.2473; Glucose 89 mg/dL (65-115); Magnesium 2.1 mg/dL (1.7-2.3); Osmolality Calculated 297 mOsm/kg (285-295); Sodium 143 mmol/L (136-145)
[2025-07-02 06:04] LABS: Anion Gap 17.4 (5-19); Potassium 4.4 mmol/L (3.5-5.1)
--- NOTE | 2025-07-02 08:25 | PC.NURSE ---
Patient did take her home vitamins this morning, the STORE PROMOTER walked in and saw her. Nursing asking what she took and patient states I took calcium, probiotic, vit D3, vit B12, and K+. Nursing educated her that while in the hospital we don't recommend that you take any medications on your own due to interactions. Patient states understanding.
--- NOTE | 2025-07-02 11:42 | PC.SOCIAL ---
*IMM* Completed, initialed, dated and timed in the chart. Copy received by patient.
--- NOTE | 2025-07-02 13:13 | P.DS_ITS ---
Discharge Providers Date of Admission: 06/30/25 16:20 Date of Discharge: July 02, 2025 Attending Provider at Admission: Divina Garvey MD Attending Provider at Discharge: Ford Rubin MD Diagnoses at Discharge Discharge Diagnosis 1. Cerebrovascular accident: 2. Thrombolytic therapy administered within 2 hours of onset of symptoms: 3. 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 No dissection or occlusion. Right internal carotid artery: No stenosis of the extracranial segment. No dissection or occlusion. Right external carotid artery: No occlusion or stenosis of the origin. Left common carotid artery: No stenosis. No dissection or occlusion. Left internal carotid artery: No stenosis of the extracranial segment. No dissection or occlusion. Left external carotid artery: No occlusion or stenosis of the origin. Right vertebral artery: No stenosis. No dissection or occlusion. Left vertebral artery: No stenosis. No dissection or occlusion. Soft tissues: Normal. No significant soft tissue swelling. Bones/joints: No acute fracture. Lungs: Bilateral apical pleural disease. No pneumothorax. - Telemetry stroke service at [place] was consulted, - Patient received TNKase - Monitor in the ICU for over 24 hours - Repeat head CT no acute intracranial abnormality - Cardiac echo CONCLUSIONS 1. Hyperdynamic left ventricular function, EF 74%. 2. No significant valvular abnormalities. - She was managed on aspirin, statin - Telemetry monitoring - On discharge patient is alert oriented x 3, following all commands, no left facial droop, no slurring words, no word finding difficulty, no dysphagia, she does have complaints of paresthesias left face, left arm, left leg, but significantly improved compared to admission, - No cerebellar signs, -Monitored with PT OT - PT OT recommended discharge home - Patient will be discharged with Norvasc 10 mg daily, lisinopril 20 mg daily - Aspirin, statin - If any strokelike symptoms call 911 - [place], [place] - She is to follow-up with primary care provider as soon as she gets back - She will need to be referred to neurology for follow-up - Also needs to follow-up with primary care provider for event monitor placement - Needs to follow-up with primary care provider for blood pressure check For urinary tract infection, received IV antibiotics during hospitalization, discharged on p.o. antibiotics Physical Exam Const: COMMON NORMALS: no acute distress and patient oriented x3 HENMT: COMMON NORMALS: normocephalic HEAD & SCALP: normocephalic Resp: COMMON NORMALS: normal respiratory effort, No retractions, No use of accessory muscles and clear to auscultation bilaterally AUSCULTATION: clear to auscultation bilaterally Cardio: COMMON NORMALS: regular rate, regular rhythm, S1 normal heart sound present and S2 normal heart sound present RATE: regular rate RHYTHM: regular rhythm HEART SOUNDS: S1 normal heart sound present and S2 normal heart sound present GI: COMMON NORMALS: Normal to inspection, nondistended, normoactive bowel sounds present and non-tender Extremity: COMMON NORMALS: no calf tenderness and no pedal edema Neuro: COMMON NORMALS: patient oriented x3, CN's II-XII intact bilaterally, moves all extremities and no focal motor deficits Psych: COMMON NORMALS: mental status grossly normal Discharge Data Studies Completed and Pending Completed Studies During Hospitalization Category Date Time Status CT angio headneck* [id number] Stat Cat Scan 06/30/25 15:[address] head thrombolytic [id number] Stat Cat Scan 06/30/25 15:[address] head wo con* [id number] Routine Cat Scan 07/01/25 15:00 Completed CV. echo complete* [id number] Routine Ultrasound 06/30/25 16:05 Completed Radiology Impressions Head/Neck CTA 06/30/25 15:10 IMPRESSION: No large vessel stenosis or occlusion. IMPRESSION: 1. No stenosis or occlusion. 2. THIS REPORT CONTAINS FINDINGS THAT MAY BE CRITICAL TO PATIENT CARE. The findings were verbally communicated by me to ARMEN JONES at 3:38 PM AVIONICS TECHNICIAN on 06/30/2025. The findings were acknowledged and understood for both CTA studies.. REFERENCES: NASCET CRITERIA. The degree of stenosis in the cervical segment of the internal carotid artery is based on NASCET criteria. Normal is no stenosis. Mild is less than 50% stenosis. Moderate is 50-69% stenosis. Severe is 70% to 99% stenosis. Total occlusion is no detectable patent lumen. Head CT 07/01/25 15:00 IMPRESSION: 1. No acute intracranial abnormality. 2. Consider MRI brain for further evaluation. Laboratory Results WBC 7.01 10^3/uL (3.29-11.43) 07/02/25 04:08 RBC 4.74 10^6/uL (3.85-5.65) 07/02/25 04:08 Hgb 13.70 g/dL (11.27-16.99) 07/02/25 04:08 Hct 42.9 % (36-47) 07/02/25 04:08 MCV 90.5 fl (85-98) 07/02/25 04:08 MCH 28.9 pg (27-33) 07/02/25 04:08 MCHC 31.9 g/dL (30-55) 07/02/25 04:08 RDW 13.9 % (12.1-15.1) 07/02/25 04:08 Plt Count 269 10^3/cmm (157-399) 07/02/25 04:08 MPV 11.1 fL (7.4-10.4) H 07/02/25 04:08 Neut % (Auto) 68.5 % 07/02/25 04:08 Lymph % (Auto) 18.8 % 07/02/25 04:08 Reynolds % (Auto) 8.4 % 07/02/25 04:08 Eos % (Auto) 3.3 % 07/02/25 04:08 Baso % (Auto) 0.6 % 07/02/25 04:08 Neut # (Auto) 4.80 10^3/uL (1.8-7.7) 07/02/25 04:08 Lymph # (Auto) 1.3 10^3/uL (0.8-4.8) 07/02/25 04:08 Reynolds # (Auto) 0.6 10^3/uL (0.2-0.9) 07/02/25 04:08 Eos # (Auto) 0.2 10^3/uL (0.0-0.8) 07/02/25 04:08 Baso # (Auto) 0.0 10^3/uL (0.0-0.1) 07/02/25 04:08 Nucleated RBC % (auto) 0 % 07/02/25 04:08 Nucleated RBCs # 0.0 /100WBC 07/02/25 04:08 PT 12.80 SECONDS (12.1-14.9) 06/30/25 15:26 INR 0.90 (0.8-1.2) 06/30/25 15:26 APTT 25.0 SECONDS (23.9-36.7) 06/30/25 15:26 Sodium 143 mmol/L (136-145) 07/02/25 04:08 Potassium 4.4 mmol/L (3.5-5.1) 07/02/25 04:08 Chloride 108 mmol/L (98-107) H 07/02/25 04:08 Carbon Dioxide 22 mmol/L (22-29) 07/02/25 04:08 Anion Gap 17.4 (5-19) 07/02/25 04:08 BUN 17 mg/dL (8-23) 07/02/25 04:08 Creatinine 0.7 mg/dL (0.5-0.9) 07/02/25 04:08 GFR Calculation Not Reportable 07/02/25 04:08 Glucose 89 mg/dL (65-115) 07/02/25 04:08 POC Glucose 87 mg/dL (70-110) 06/30/25 15:07 Estimat Average Glucose 103 07/01/25 16:06 Hemoglobin A1c 5.2 % (4.0-6.0) 07/01/25 16:06 Calculated Osmolality 297 mOsm/kg (285-295) H 07/02/25 04:08 Calcium 9.0 mg/dL (8.5-10.5) 07/02/25 04:08 Magnesium 2.1 mg/dL (1.7-2.3) 07/02/25 04:08 Total Bilirubin 0.6 mg/dL (0.15-1.2) 07/01/25 16:06 AST 22 U/L (0-32) 07/01/25 16:06 ALT 17 U/L (0-33) 07/01/25 16:06 Alkaline Phosphatase 63 U/L (35-105) 07/01/25 16:06 Total Protein 6.8 g/dL (6.6-8.7) 07/01/25 16:06 Albumin 3.8 g/dL (3.5-5.2) 07/01/25 16:06 Globulin 3.0 g/dL (1.3-4.6) 07/01/25 16:06 Triglycerides 103 mg/dL (0-150) 07/01/25 16:06 Cholesterol 171 mg/dL (0-200) 07/01/25 16:06 LDL Cholesterol, Calc 114 mg/dL (50-129) 07/01/25 16:06 Total VLDL Cholesterol 21 mg/dL (0-30) 07/01/25 16:06 HDL Cholesterol 36 mg/dL (60-100) L 07/01/25 16:06 Cholesterol/HDL Ratio 4.75 mg/dL (0.0-4.40) H 07/01/25 16:06 TSH 5.13 uIU/mL (0.27-4.20) H 07/01/25 16:06 Urine Color Yellow (Yellow) 06/30/25 16:21 Urine Appearance Clear (CLEAR) 06/30/25 16:21 Urine pH 7.5 (5-7) 06/30/25 16:21 Ur Specific [place] 1.028 (1.005-1.030) 06/30/25 16:21 Urine Protein Negative (Negative) 06/30/25 16:21 Urine Glucose (UA) Negative (Normal) 06/30/25 16:21 Urine Ketones Negative (Negative) 06/30/25 16:21 Urine Blood Negative (Negative) 06/30/25 16:21 Urine Nitrate Positive (Negative) A 06/30/25 16:21 Urine Bilirubin Negative (Negative) 06/30/25 16:21 Urine Urobilinogen 0.2 mg/dL (Negative) 06/30/25 16:21 Ur Leukocyte Esterase 1+ (Negative) A 06/30/25 16:21 Urine RBC 0-2 /hpf (0-2) 06/30/25 16:21 Urine WBC 11-20 /hpf (0-5) H 06/30/25 16:21 Ur Squamous Epith Cells 0-5 /hpf (0-5) 06/30/25 16:21 Amorphous Sediment Not Reportable 06/30/25 16:21 Urine Bacteria 4+ /hpf (NONE) H 06/30/25 16:21 Hyaline Casts 0.40 /lpf 06/30/25 16:21 Urine Opiates Screen Negative ng/mL (Negative) 06/30/25 16:21 Ur Barbiturates Screen Negative ng/mL (Negative) 06/30/25 16:21 Ur Phencyclidine Scrn Negative ng/mL (Negative) 06/30/25 16:21 Ur Amphetamines Screen Negative ng/mL (Negative) 06/30/25 16:21 U Benzodiazepines Scrn Negative ng/mL (Negative) 06/30/25 16:21 Urine Cocaine Screen Negative ng/mL (Negative) 06/30/25 16:21 U Marijuana (THC) Screen Negative ng/mL (Negative) 06/30/25 16:21 Vitals Last Vital Signs Temp 97.7 F 07/02/25 12:00 Pulse 66 07/02/25 12:00 Resp 18 07/02/25 12:00 BP 171/76 07/02/25 12:00 Pulse Ox 97 07/02/25 12:00 O2 Del Method Room Air 07/02/25 12:00 Discharge Plan Discharge Patient Disposition: Home Condition: Stable Prescriptions: New amlodipine 10 mg tablet 10 mg PO DAILY 30 Days Qty: 30 0RF aspirin 81 mg Tablet,Delayed Release (Dr/Ec) 81 mg PO DAILY 30 Days Qty: 30 0RF atorvastatin 40 mg Tablet 40 mg PO BEDTIME 30 Days Qty: 30 0RF ciprofloxacin HCl 250 mg tablet 250 mg PO BID 3 Days Qty: 6 0RF clonidine HCl 0.1 mg tablet 0.1 mg PO BID PRN (Reason: hypertensive emergency) 30 Days Qty: 30 0RF Rx Instructions: For systolic blood pressure greater than 180 or diastolic blood pressure greater than 100 lisinopril 20 mg tablet 20 mg PO DAILY 30 Days Qty: 30 0RF Continued calcium carbonate [Calcium 600] 600 mg calcium (1,500 mg) Tablet 600 mg PO DAILY cholecalciferol (vitamin D3) [Vitamin D3] 125 mcg (5,000 unit) Tablet 125 mcg PO DAILY Prolia 60 mg/mL Syringe 60 mg SUBCUT Q6M Probiotic Blend 2 billion cell-50 mg Capsule 1 cap PO DAILY Rx Instructions: give with meal/snack Referrals: Della Blackman [Other] - 1 week Referral Note: Please call for an follow-up appointment within 1 week. Please talk with your PCP regarding a referral for neurology within 2 weeks. Thank you! Discharge Diet: Cardiac Discharge Activity: Resume usual activity Patient Instructions: Nitroglycerin (By mouth), Clonidine (By mouth), Aspirin (By mouth), Atorvastatin (By mouth) (Lipitor, Atorvaliq), Cefdinir (By mouth) (Omnicef), Stroke (DC), Opioid Safety, Stroke Stoplight, Patient Portal & [place] Instructions Activity Restrictions/Additional Instructions: - If you have any recurrent stroke symptoms call 911 - Please continue aspirin 81 mg daily - Continue atorvastatin 40 mg daily - I have discharged you on Norvasc 10 mg daily - I have discharged on clonidine 0.1 mg twice daily as needed for hypertensive emergency, for systolic blood pressure more than 180 or diastolic blood pressure greater than 100 - Please record blood pressures twice daily - Please see your primary care provider in 1 week - Please follow-up with neurology in 2 weeks - Please continue aspirin, statin as prescribed - If you have headache or blurry vision please go to the emergency room - Take antibiotics as prescribed please follow-up with your heart doctor for consideration of heart monitor, to rule out atrial fibrillation as a possible cause for your stroke - If you have chest pain or palpitations go to the emergency room - TSH 5.13 recheck with your primary care - HDL 36, LDL 114, cholesterol 171, triglycerides 103 - Your head CT did show severe patchy hypodensity in hemispheric white matter bilaterally 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, you do need to have good blood pressure control, please follow-up with primary care, please follow-up with neurology Discharge Attestations Time Spent in Discharge Care*: greater than 30 min Quality Metrics Clinical Quality Measures [ Cerebrovascular Accident { Contraindication to Antithrombotic: None; antithrombotic prescribed; Contraindication to Anticoagulation: Overlap treatment not indicated; Contraindication to Statin: None; Statin prescribed;}] Coding Level of Care Code 06498 Total time (in minutes) for Discharge: 45 Diagnoses Cerebrovascular accident I63.40 CVA mechanism: embolism Precerebral and cerebral artery: unspecified cerebral artery Thrombolytic therapy administered within 2 hours of onset of symptoms Hypertension I10
--- NOTE | 2025-07-02 14:14 | PC.NURSE ---
Provider is updated with patients last two blood pressures and heart rate. He going to adjust medications.
--- NOTE | 2025-07-02 15:39 | PC.NURSE ---
Patient is updated on current blood pressure and heart rate.
== END 2025-07-02 16:24 | disposition home or self-care (01) | DRG 62 ==
LOC: ER 16:25 → ICU 16:31 → CSU 07-01 18:03
PROVIDERS: Admitting Provider Internal Medicine; Emergency Provider Emergency Medicine; Visit Provider Family Medicine
DX: I63.10 Cerebral infarction due to embolism of unspecified precerebral artery (principal); G81.94 Hemiplegia, unspecified affecting left nondominant side; N39.0 Urinary tract infection, site not specified; R29.810 Facial weakness; R29.703 NIHSS score 3; I10 Essential (primary) hypertension; Z96.649 Presence of unspecified artificial hip joint; Z79.83 Long term (current) use of bisphosphonates; Z86.711 Personal history of pulmonary embolism; Z90.13 Acquired absence of bilateral breasts and nipples; Z85.3 Personal history of malignant neoplasm of breast
CPT/HCPCS: 36415; 36416; 70450; 70496; 70498; 80048; 80053; 80061; 80306; 81001; 82962; 83036; 83735; 84443; 85025; 85610; 85730; 87077; 87086; 87186; 92523; 92610; 93005; 93306; 94664; 96365; 96375; 97161; 97165; 99291; J2404; J3101; J3490; J7030; J9999